=== PATIENT | male | born 1965 | race Caucasian/White ===

== ENCOUNTER 2020-06-05 12:39 | Inpatient (IN) ==
[2020-06-05] MEDS ORDERED: IOPAMIDOL 100 ML BOTTLE IV ONE (12:40)
[2020-06-05] MEDS ORDERED: ONDANSETRON 4 MG/2 ML VIAL IV ONE (13:06)
[2020-06-05] MEDS ORDERED: 0.9 % SODIUM CHLORIDE 1,000 ML IV ONE (13:06)
--- NOTE | 2020-06-05 13:13 | Emergency Department Note ---
Abdominal Pain HPI General Chief Complaint: Constipation Stated Complaint: Constipation for 1 week Time Seen by Provider: 06/05/20 12:52 Source: patient Mode of arrival: wheelchair Limitations: no limitations History of Present Illness HPI Narrative: Narrative: 54-year-old male patient presents the emergency department with chief complaint of constipation x7 days. Patient admits to history of MS and has had frequent episodes of constipation in the past. His last normal bowel movement was approximately 7 days ago. He admits to considerable abdominal bloating and diffuse abdominal tenderness. Since that time he is continued to take his senna. He tried prunes 2 days ago. He is stopped passing flatus approximately 2 days ago. He has now developed nausea and vomiting today. He denies hematemesis. ROS: Denies systemic illness, fever, sweats, chills. Denies runny nose, sinus congestion, or cough. Denies shortness of breath. Denies retrosternal chest pain or palpitations. Denies dysuria, hematuria, urinary frequency, or urinary urgency. Admits to generalized weakness. Related Data Home Medications Medication Instructions Recorded Confirmed pregabalin 100 mg capsule 100 mg PO QDAY 01/28/20 06/05/20 Previous Rx's Medication Instructions Recorded duloxetine 60 mg capsule,delayed 60 mg PO QDAY #90 cap 11/10/19 release hydroxyzine HCl 25 mg tablet 25 mg PO Q4H PRN #90 tab 11/10/19 lubiprostone 24 mcg capsule 24 mcg PO BID #60 cap 11/10/19 baclofen 10 mg tablet 10 mg PO TID #90 tab 01/28/20 bupropion HCl 300 mg 24 hr tablet, 300 mg PO QAM #90 tab 04/30/20 extended release pramipexole 0.75 mg 0.75 mg PO BID #90 tab 04/30/20 tablet,extended release 24 hr pregabalin 150 mg capsule 150 mg PO QHS #30 cap 04/30/20 ramelteon 8 mg tablet 8 mg PO QHS #30 tab 04/30/20 tadalafil 20 mg tablet See Rx Instructions .ROUTE 05/13/20 .COMPLEX #15 tab Allergies Allergy/AdvReac Type Severity Reaction Status Date / Time No Known Drug Allergies Allergy Verified 04/30/20 10:34 Review of Systems ROS ROS Narrative: Narrative: All systems ED: reviewed and negative except as stated. PFSH Narrative Patient History Narrative: Narrative: Medical/Surgical/Family History All Active Problems Partial small bowel obstruction (Acute) Constipation (Acute) Insomnia (Chronic) Muscle spasm (Chronic) Multiple sclerosis, primary progressive (Chronic) Laceration (Acute) Pain, dental (Acute) Dental infection (Acute) Chronic constipation (Acute) Medical History Anxiety (Acute) Constipation (Acute) Depression (Acute) Erectile dysfunction (Acute) Insomnia (Acute) Multiple sclerosis (Acute) Palpitations (Acute) Restless leg syndrome (Acute) Family History (Updated 06/05/20 @ 17:58 by Ramos Loving MD) Unknown No problems noted. Social History Smoking Status: Never smoker Exam Narrative Narrative: Narrative: General Limitations: no limitations General appearance: other (Well-developed, well-nourished, acutely ill-appearing 54-year-old male patient laying supine on the emergency room gurney obviously uncomfortable. He is in no acute respiratory distress.) Head Head: atraumatic and normocephalic Eye Eye: Present normal appearance, PERRL and EOMI; Absent scleral icterus and conjunctival injection ENT ENT: Present normal oropharynx and mucous membranes moist Neck Neck: Present trachea midline; Absent lymphadenopathy and thyromegaly Chest Chest: Present symmetric chest wall rise Respiratory Respiratory: Present normal lung sounds bilaterally; Absent respiratory distress, wheezes, stridor, accessory muscle use and prolonged expiratory phase Cardiovascular Cardiovascular: Present regular rate and normal rhythm; Absent systolic murmur and diastolic murmur Adbominal Abdominal: Present soft, distention, tenderness and hyperactive bowel sounds ([place] greatest in the left upper quadrant.); Absent guarding, rebound, rigidity, organomegaly and mass Expanded Abdominal Abdominal Tenderness: Present diffuse and moderate Extremities Extremities: Present normal inspection, full ROM and normal capillary refill; Absent pedal edema Neurological Neurological: Present alert and oriented X3 Psychiatric Psychiatric: Present normal affect and normal mood Skin Skin: Present warm, dry and normal color Course Course Course Narrative: The differential diagnosis of diffuse abdominal pain in the adult patient is broad and includes the following: Bowel obstruction, perforation of the GI tract, acute/chronic mesenteric ischemia, abdominal aortic aneurysm (AAA), inflammatory bowel disease (ulcerative colitis/Crohn disease), viral gastroenteritis, spontaneous bacterial peritonitis, colorectal cancer, celiac disease, ketoacidosis, adrenal insufficiency, foodborne illness, IBS, constipation, diverticulosis, and lactose intolerance. Patient has known history of MS and as result has had constipation in the past. However he is not developed nausea or vomiting with these episodes until today. His belly exam does show a distended abdomen that is diffusely tender on exam. We are going to order CT scan of his abdomen/pelvis with contrast. I will order some screening laboratory studies as well. We are to treat the patient with Zofran 4 mg IVP. We will also provide him normal saline bolus. Reevaluation(s) Reevaluation #1: Patient began to complain of worsening headache. He was given Tylenol 975 mg p.o. to help with this. Time: 14:45 Reevaluation #2: A review of the patient's diagnostics show the following: CBC WBC 10.0, RBC 6.09, hemoglobin 7.3, hematocrit 52.2, platelets 299. CMP CO2 20, BUN 24, glucose 122, ALT 53, alkaline phosphatase 131, all others normal limits. Contrast-enhanced CT scan of the abdomen/pelvis showing high-grade partial small bowel obstruction of the distal jejunum located in the right upper quadrant due to adhesions or stricture. Radiologist mentions moderate stool is seen within the colon which has not yet been evacuated. There is also mention of 19 mm simple cyst lateral segment left hepatic lobe. After reviewing all the data I reached out to on-call general surgeon (Dr. Loving) and discussed the case with him. At this time the general surgeon did request an NG tube be placed. He would then come down to the emergency department and evaluate the patient for possible admission. Knowing this, I discussed the treatment plan with the patient who verbalized understanding. He mentioned that his headache is slightly improved with the Tylenol. He denies worsening abdominal pain. He denies ongoing nausea. NG tube was placed by nursing staff and placement was verified with radiographs with radiographs. A review of the images show a well- placed NG tube in the stomach. Time: 15:29 Reevaluation #3: Dr. Loving arrived at the patient's bedside and performed his evaluation. At this time general surgeon would like to admit the patient here to our facility for ongoing care. With this in mind patient was notified that he is going to be admitted. All further treatment decisions, modalities, and ultimate patient disposition will be carried out by the general surgeon. Time: 17:31 Vital Signs Vital signs: Vital Signs Temperature 98.5 F 06/05/20 12:42 Pulse Rate 111 H 06/05/20 12:42 Respiratory Rate 18 06/05/20 12:42 Blood Pressure 113/82 06/05/20 12:42 Pulse Oximetry (%) 95 06/05/20 12:42 Temperature 97.9 F 06/05/20 17:59 Pulse Rate 98 H 06/05/20 17:59 Respiratory Rate 18 06/05/20 17:59 Blood Pressure 122/71 06/05/20 17:59 Pulse Oximetry (%) 95 06/05/20 17:59 MDM MDM Narrative Medical decision making narrative: Narrative: Lab Data Result diagrams: 06/05/20 13:18 06/05/20 13:18 Labs: Lab Results 06/05/20 06/05/20 Range/Units 13:18 13:18 WBC 10.0 (4.50-11.00) K/mcL RBC 6.09 H (4.63-6.08) M/mcL Hgb 17.3 (13.7-17.5) g/dL Hct 52.2 H (40.1-51.0) % MCV 85.7 (80.0-100.0) fL MCH 28.4 (26.0-34.0) pg MCHC 33.1 (31.0-36.0) g/dL RDW 13.7 (11.5-14.5) % Plt Count 299 (140-440) K/mcL MPV 10.9 H (7.4-10.4) fL Gran % 86.7 H (38.0-78.0) % Lymph % (Auto) 7.3 L (15.5-49.0) % Clinch % (Auto) 5.4 (1.0-12.0) % Eos % (Auto) 0.2 (0.0-7.0) % Baso % (Auto) 0.4 (0.0-2.0) % Gran # 8.63 H (1.80-8.00) K/mcL Lymph # (Auto) 0.73 L (1.50-4.80) K/mcL Clinch # (Auto) 0.54 (0.10-0.90) K/mcL Eos # (Auto) 0.02 (0.00-0.70) K/mcL Baso # (Auto) 0.04 (0.00-0.30) K/mcL Sodium 137 (133-145) mmol/L Potassium 4.0 (3.3-5.1) mmol/L Chloride 103 (96-108) mmol/L Carbon Dioxide 20 L (22-30) mmol/L Anion Gap 14.0 (8-16) BUN 24 H (6-20) mg/dl Creatinine 1.1 (0.7-1.2) mg/dl POC Creatinine 1.1 (0.7-1.2) mg/dl GFR Calculation 76 Glucose 122 H (70-105) mg/dL Calcium 10.0 (8.6-10.4) mg/dl Total Bilirubin 0.5 (0.0-1.0) mg/dL AST 29 (0-37) U/l ALT 53 H (0-40) U/l Alkaline Phosphatase 131 H (39-117) U/L Total Protein 7.6 (5.9-8.4) gm/dL Albumin 4.6 (3.2-5.2) gm/dL Globulin 3.0 (2.2-3.7) gm/dL Albumin/Globulin Ratio 1.5 (1.0-2.3) Radiology Data Radiology results reviewed: Yes I reviewed the patient's radiology results. Radiology results narrative: Ordering Physician: Ruperto Arceo PA-C Date of Service: 06/05/20 Procedure(s): CT abdomen pelvis w con Accession Number(s): [id number] CLINICAL INFORMATION: Abdominal pain COMPARISON: None. TECHNIQUE: Following enteric contrast, 80 cc of Isovue-370 were injected intravenously, and 60 seconds later, 0.625 mm helical slices were obtained from the mid heart through the subtrochanteric regions. Following reconstruction, 2.5 mm sagittal, coronal and axial reformatted images were processed and reviewed at bone, lung and soft tissue windows. Five minutes later, 0.625 mm helical slices were obtained from the mid heart through the kidneys and viewed at soft tissue windows.The exam was performed using radiation dose optimization techniques including, but not limited to, automated exposure control, adjustment of the mA and/or kV according to patient size and use of iterative reconstruction technique. FINDINGS: Lung bases show no subsegmental atelectasis1 - no effusion. The visualized heart is unremarkable. Abdominal images show 20 mm simple cyst in the lateral segment left hepatic lobe. No other hepatic lesions. Minimal fatty change appreciated. The gallbladder and bile ducts are normal: CBD is 5 mm. Both kidneys, adrenal glands, spleen, pancreas and aorta, including aortic branches the are normal in size, configuration and attenuation without focal lesion. 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 There is no free air, free fluid or adenopathy Pelvic images show prostate, seminal vesicles and urinary bladder are normal. The stomach, duodenum and jejunum are moderately dilated the point of a stricture or adhesion in the right upper quadrant (axial image 73, coronal image 68 and sagittal image 41). The distal small bowel is decompressed. Interestingly, there is moderate amount of stool within the terminal ileum and throughout the colon. Appendix is unremarkable. Bone windows show no abnormality IMPRESSION: 1. High-grade partial small bowel obstruction in the distal jejunum located in the right upper quadrant due to adhesion or stricture. Moderate stool is seen within the colon which has not yet been evacuated. 2. 19 mm simple cyst lateral segment left hepatic lobe Interpreted and Authenticated by: Mayito Mahoney 06/05/20 Plain abdominal radiograph reviewed by myself as well as the general surgeon showing a well-placed NG tube in the gastric bubble. Discharge Plan Patient/Caregiver Discharge Instructions Pt seen by LOSS PREVENTION RESEARCH ENGINEER/PA only: Yes Clinical Impression: Partial small bowel obstruction, Multiple sclerosis, primary progressive Constipation Qualifiers: Constipation type: other constipation type Qualified Code(s): K59.09 - Other constipation Patient Disposition: Xfer As Inpt ([facility]) Condition: Fair Discharge Date/Time: 06/05/20 17:50
[2020-06-05 13:24] LABS: POC Creatinine 1.1 mg/dl (0.7-1.2)
[2020-06-05] MEDS ORDERED: ACETAMINOPHEN 325 MG TABLET PO ONE (13:54)
[2020-06-05 14:02] LABS: Basophils # (Auto) 0.04 K/mcL (0.00-0.30); Basophils % (Auto) 0.4 % (0.0-2.0); Eosinophils # (Auto) 0.02 K/mcL (0.00-0.70); Eosinophils % (Auto) 0.2 % (0.0-7.0); Granulocytes % (Auto) 86.7 % (38.0-78.0); Hematocrit 52.2 % (40.1-51.0); Hemoglobin 17.3 g/dL (13.7-17.5); Lymphocytes # (Auto) 0.73 K/mcL (1.50-4.80); Lymphocytes % (Auto) 7.3 % (15.5-49.0); Mean Cell Volume 85.7 fL (80.0-100.0); Mean Corpuscular HGB Conc 33.1 g/dL (31.0-36.0); Mean Platelet Volume 10.9 fL (7.4-10.4); Monocytes # (Auto) 0.54 K/mcL (0.10-0.90); Monocytes % (Auto) 5.4 % (1.0-12.0); Platelet Count 299 K/mcL (140-440); RBC 6.09 M/mcL (4.63-6.08); Red Cell Distribution Width 13.7 % (11.5-14.5)
[2020-06-05 14:13] LABS: ALT/SGPT 53 U/l (0-40); AST/SGOT 29 U/l (0-37); Albumin 4.6 gm/dL (3.2-5.2); Albumin/Globulin Ratio 1.5 (1.0-2.3); Alkaline Phosphatase 131 U/L (39-117); Bilirubin,Total 0.5 mg/dL (0.0-1.0); Blood Urea Nitrogen 24 mg/dl (6-20); Carbon Dioxide 20 mmol/L (22-30); Chloride 103 mmol/L (96-108); Glomerular Filtration Rate 76; Glucose 122 mg/dL (70-105)
--- NOTE | 2020-06-05 14:59 | Cat Scan Report ---
CLINICAL INFORMATION: Abdominal pain COMPARISON: None. TECHNIQUE: Following enteric contrast, 80 cc of Isovue-370 were injected intravenously, and 60 seconds later, 0.625 mm helical slices were obtained from the mid heart through the subtrochanteric regions. Following reconstruction, 2.5 mm sagittal, coronal and axial reformatted images were processed and reviewed at bone, lung and soft tissue windows. Five minutes later, 0.625 mm helical slices were obtained from the mid heart through the kidneys and viewed at soft tissue windows.The exam was performed using radiation dose optimization techniques including, but not limited to, automated exposure control, adjustment of the mA and/or kV according to patient size and use of iterative reconstruction technique. FINDINGS: Lung bases show no subsegmental atelectasis1 - no effusion. The visualized heart is unremarkable. Abdominal images show 20 mm simple cyst in the lateral segment left hepatic lobe. No other hepatic lesions. Minimal fatty change appreciated. The gallbladder and bile ducts are normal: CBD is 5 mm. Both kidneys, adrenal glands, spleen, pancreas and aorta, including aortic branches the are normal in size, configuration and attenuation without focal lesion. 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 There is no free air, free fluid or adenopathy Pelvic images show prostate, seminal vesicles and urinary bladder are normal. The stomach, duodenum and jejunum are moderately dilated the point of a stricture or adhesion in the right upper quadrant (axial image 73, coronal image 68 and sagittal image 41). The distal small bowel is decompressed. Interestingly, there is moderate amount of stool within the terminal ileum and throughout the colon. Appendix is unremarkable. Bone windows show no abnormality IMPRESSION: 1. High-grade partial small bowel obstruction in the distal jejunum located in the right upper quadrant due to adhesion or stricture. Moderate stool is seen within the colon which has not yet been evacuated. 2. 19 mm simple cyst lateral segment left hepatic lobe Interpreted and Authenticated by: Mayito Mahoney 06/05/20
[2020-06-05] MEDS ORDERED: PRAMIPEXOLE 0.25 MG TABLET PO ONE (16:05)
[2020-06-05] MEDS ORDERED: PROMETHAZINE 25 MG/ML VIAL IV PRN (17:14)
[2020-06-05] MEDS ORDERED: LACTATED RINGERS 1,000 ML IV ONE (17:20)
[2020-06-05] MEDS ORDERED: OLANZapine 10 MG VIAL IM PRN ×2 (17:28→19:45)
--- NOTE | 2020-06-05 17:42 | General Surg History&Physical ---
HPI History of Present Illness Patient information: Note initiated : 06/05/20 at 5:38 pm Service Date, if different from initiated Date: [] Patient: Reinier Espinoza 54 y/o M admitted on for Constipation for 1 week. Chief Complaint: [nausea and vomiting ] History of present illness: 54M without prior abdominal surgery or trauma and 15yr hx of primary progressive MS with long history of related constipation - he now presents with atypical abdominal distention and nausia and vomiting. Pt typically takes 10-12 senna to have 1 soft BM daily there are episodes of no BM several times a year for up to 1 week that resolve. Pt now presents with over 1 week of no BM, no flatus x 3 days, and progressive but generally non painful distention. He reports that the emisis x 1 and nausea has not occured with past episodeds of constipation. He is now feeling ill. ED course: Pt found to have WBC 10, with CT demonstrating large distended colon full of stool as well as transition point in distal jejunum from distended small bowel to decompressed small bowel concerning for SBO. Constitutional Constitutional: Present weakness; Absent fever(s) and increased appetite EENT Eyes: Absent irritation, loss of peripheral vision and loss of vision Nose, mouth and throat: Absent nasal trauma Cardiovascular Cardiovascular: Present lightheadedness; Absent edema Respiratory Respiratory: Absent cough and hemoptysis Gastrointestinal Gastrointestinal: Present constipation, nausea and vomiting; Absent loose stools and melena Genitourinary Genitourinary: difficulty urinating Musculoskeletal Musculoskeletal: Present muscle cramps Integumentary Integumentary: Absent skin ulcer Neurological Neurological: Absent frequent falls Psychiatric Psychiatric: Absent confusion Endocrine Endocrine: Absent excessive sweating PFSH PFSH All Active Problems Partial small bowel obstruction (Acute) Constipation (Acute) Insomnia (Chronic) Muscle spasm (Chronic) Multiple sclerosis, primary progressive (Chronic) Laceration (Acute) Pain, dental (Acute) Dental infection (Acute) Chronic constipation (Acute) Medical History Anxiety (Acute) Constipation (Acute) Depression (Acute) Erectile dysfunction (Acute) Insomnia (Acute) Multiple sclerosis (Acute) Palpitations (Acute) Restless leg syndrome (Acute) Family History (Updated 06/05/20 @ 17:58 by Ramos Loving MD) Unknown No problems noted. Social History household members: spouse lives independently: No marital status: education level: college occupational status: employed occupation: secondary teacher smoking status: Never smoker MEDS/ALLERGIES Home Medications and Allergies Home Medications Medication Instructions Recorded Confirmed Type duloxetine 60 mg capsule,delayed 60 mg PO QDAY #90 cap 11/10/19 06/05/20 Rx release hydroxyzine HCl 25 mg tablet 25 mg PO Q4H PRN #90 tab 11/10/19 06/05/20 Rx lubiprostone 24 mcg capsule 24 mcg PO BID #60 cap 11/10/19 06/05/20 Rx baclofen 10 mg tablet 10 mg PO TID #90 tab 01/28/20 06/05/20 Rx pregabalin 100 mg capsule 100 mg PO QDAY 01/28/20 06/05/20 History bupropion HCl 300 mg 24 hr tablet, 300 mg PO QAM #90 tab 04/30/20 06/05/20 Rx extended release pramipexole 0.75 mg 0.75 mg PO BID #90 tab 04/30/20 06/05/20 Rx tablet,extended release 24 hr pregabalin 150 mg capsule 150 mg PO QHS #30 cap 04/30/20 06/05/20 Rx ramelteon 8 mg tablet 8 mg PO QHS #30 tab 04/30/20 06/05/20 Rx tadalafil 20 mg tablet See Rx Instructions .ROUTE 05/13/20 06/05/20 Rx .COMPLEX #15 tab Allergies Allergy/AdvReac Type Severity Reaction Status Date / Time No Known Drug Allergies Allergy Verified 04/30/20 10:34 Physical Examination Vital Signs Vital signs: Temp Pulse Resp BP Pulse Ox 36.9 C 102 H 18 122/70 98 06/05/20 12:42 06/05/20 15:28 06/05/20 12:42 06/05/20 16:00 06/05/20 15:28 General physical appearance General physical exam: other (NAD, good historian, not in extremis, ) Eyes Eye exam: other (non injected, non icteric) ENT ENT exam: other (MM minimally dry, good dentition) Neck Neck exam: other (no cervical LAD) Cardiovascular Cardiovascular: RRR, no MGR, nml s1 s2 Respiratory Respiratory exam: normal respiratory effort and clear to auscultation Abdomen Abdomen: Present soft (abd has minimal BS, no surgical scars, non tympanitic, moderately distended, very little tenderness, tolerated deep palpation without difficulty, No rebound, neg bedshake, no reflexive guarding) Hernia: Present none Integumentary Integumentary: Present no rash Neurologic Neurologic: Present normal coordination and normal sensation Musculoskeletal Musculoskeletal: Present normal posture Psychiatric Psychiatric: Present oriented to time, oriented to person, oriented to place, speech is normal and memory intact Results Labs Result diagrams: 06/05/20 13:18 06/05/20 13:18 Labs: Abnormal lab results 06/05/20 06/05/20 Range/Units 13:18 13:18 RBC 6.09 H (4.63-6.08) M/mcL Hct 52.2 H (40.1-51.0) % MPV 10.9 H (7.4-10.4) fL Gran % 86.7 H (38.0-78.0) % Lymph % (Auto) 7.3 L (15.5-49.0) % Gran # 8.63 H (1.80-8.00) K/mcL Lymph # (Auto) 0.73 L (1.50-4.80) K/mcL Carbon Dioxide 20 L (22-30) mmol/L BUN 24 H (6-20) mg/dl Glucose 122 H (70-105) mg/dL ALT 53 H (0-40) U/l Alkaline Phosphatase 131 H (39-117) U/L Diabetes panel 06/05/20 Range/Units 13:18 Sodium 137 (133-145) mmol/L Potassium 4.0 (3.3-5.1) mmol/L Chloride 103 (96-108) mmol/L Carbon Dioxide 20 L (22-30) mmol/L BUN 24 H (6-20) mg/dl Creatinine 1.1 (0.7-1.2) mg/dl Glucose 122 H (70-105) mg/dL Calcium 10.0 (8.6-10.4) mg/dl AST 29 (0-37) U/l ALT 53 H (0-40) U/l Alkaline Phosphatase 131 H (39-117) U/L Total Protein 7.6 (5.9-8.4) gm/dL Albumin 4.6 (3.2-5.2) gm/dL Calcium panel 06/05/20 Range/Units 13:18 Calcium 10.0 (8.6-10.4) mg/dl Albumin 4.6 (3.2-5.2) gm/dL Pituitary panel 06/05/20 Range/Units 13:18 Sodium 137 (133-145) mmol/L Potassium 4.0 (3.3-5.1) mmol/L Chloride 103 (96-108) mmol/L Carbon Dioxide 20 L (22-30) mmol/L BUN 24 H (6-20) mg/dl Creatinine 1.1 (0.7-1.2) mg/dl Glucose 122 H (70-105) mg/dL Calcium 10.0 (8.6-10.4) mg/dl Adrenal panel 06/05/20 Range/Units 13:18 Sodium 137 (133-145) mmol/L Potassium 4.0 (3.3-5.1) mmol/L Chloride 103 (96-108) mmol/L Carbon Dioxide 20 L (22-30) mmol/L BUN 24 H (6-20) mg/dl Creatinine 1.1 (0.7-1.2) mg/dl Glucose 122 H (70-105) mg/dL Calcium 10.0 (8.6-10.4) mg/dl Total Bilirubin 0.5 (0.0-1.0) mg/dL AST 29 (0-37) U/l ALT 53 H (0-40) U/l Alkaline Phosphatase 131 H (39-117) U/L Total Protein 7.6 (5.9-8.4) gm/dL Albumin 4.6 (3.2-5.2) gm/dL All other labs normal. A/P Narrative A/P Narrative: 54 yo man presents with obstipation x 3days and now BM x over 7 in the setting of progressive MS. His CT imaging is consistent with a SBO in the jejunum with clear transition point and caliber change as well as a uniformly large colon with a large stool burden. I suspect he has two processes in place. His typical non-obstructive MS related poor colonic function with large amount of unevacuated stool and a small bowel obstruction. Given the absence of abdominal surgery or trauma the SBO is worrysome for a potential maligancy and as a consiquence will need diagnostic surgery. I prefer to do this laproscopically and so will admit for fluid resus and attempt to decompressed to generate additional domain to allow intraabdominal working space. Plan: NGT decompression Gastrographin challange to eval transit through obstruction - if complete will likely need open surgery Home meds crushed down NGT with 1hr clamp serial enemas to decompress colon - if gastrographin transits SBO will start pedro luis alax from above Anti emetics Pt reports significant anxiety and concern with maintaining NGT - olanzapine PRN ordered. QTC in ED is under 460 Time Spent With Patient Time: Total time spent is greater than 50% in coordination of care (as documented) at patient's floor/unit and/or counseling patient: 65min
[2020-06-05] MEDS: LACTATED RINGERS 1,000 ML IV SCH (19:17)
[2020-06-05] MEDS ORDERED: OLANZapine 10 MG VIAL IM ONE ×2 (19:25→20:48)
--- NOTE | 2020-06-05 20:07 | XRay Report ---
CLINICAL INFORMATION: Post NG insertion. COMPARISON: None. FINDINGS: NG tube overlies the gastric body. Most of the abdomen is gasless. High-grade distal jejunal obstruction right upper quadrant technologist. No free air. CT contrast is seen within the urinary bladder which is normal. IMPRESSION: NG tube the gastric body. A known high-grade distal jejunal obstruction. Interpreted and Authenticated by: Mayito Mahoney 06/05/20
[2020-06-05] MEDS: tiZANidine 4 MG TABLET PO PRN (20:29)
[2020-06-05] MEDS ORDERED: DIAZEPAM 10 MG/2 ML SYRINGE IV ONE (20:39)
[2020-06-05] MEDS ORDERED: OLANZapine 10 MG VIAL IM SCH (20:45)
[2020-06-05] MEDS ORDERED: DIAZEPAM 10 MG/2 ML SYRINGE ONE (20:48)
[2020-06-05] MEDS ORDERED: PRAMIPEXOLE 1 MG TABLET PO SCH (21:00)
[2020-06-05] MEDS: HYDROmorphone 0.5 MG/0.5 ML SYRINGE IV PRN (21:17)
[2020-06-05] MEDS: ACETAMINOPHEN 325 MG TABLET PO SCH (21:19)
[2020-06-05] MEDS: DULoxetine 30 MG CAPSULE PO SCH (21:19)
[2020-06-05] MEDS: BACLOFEN 10 MG TABLET PO SCH (21:19)
[2020-06-05] MEDS: FLEETS ADULT ENEMA PR SCH (21:20)
[2020-06-05] MEDS: buPROPion 100 MG TABLET PO SCH (21:20)
[2020-06-05] MEDS: PREGABALIN 150 MG CAPSULE PO SCH (21:20)
[2020-06-05] MEDS: RAMELTEON 8 MG TABLET PO SCH (21:22)
[2020-06-05] MEDS: HEPARIN 5,000 UNIT/ML VIAL SQ SCH (22:23)
[2020-06-05] MEDS: 0.9 % SODIUM CHLORIDE 10 ML SYRINGE IV SCH (22:23)
[2020-06-05] MEDS: BENZOCAINE/MENTHOL 1 LOZENGE PO PRN (22:24)
[2020-06-06] MEDS: HYDROmorphone 0.5 MG/0.5 ML SYRINGE IV PRN ×2 (00:26→03:20)
[2020-06-06] MEDS: LACTATED RINGERS 1,000 ML IV SCH ×4 (02:30→15:38)
[2020-06-06] MEDS: ACETAMINOPHEN 325 MG TABLET PO SCH ×4 (02:30→21:47)
[2020-06-06] MEDS: tiZANidine 4 MG TABLET PO PRN ×2 (03:20→20:47)
[2020-06-06 05:46] LABS: Basophils # (Auto) 0.04 K/mcL (0.00-0.30); Basophils % (Auto) 0.7 % (0.0-2.0); Eosinophils # (Auto) 0.09 K/mcL (0.00-0.70); Eosinophils % (Auto) 1.6 % (0.0-7.0); Granulocytes % (Auto) 64.3 % (38.0-78.0); Hematocrit 44.8 % (40.1-51.0); Hemoglobin 14.2 g/dL (13.7-17.5); Lymphocytes # (Auto) 1.48 K/mcL (1.50-4.80); Lymphocytes % (Auto) 25.5 % (15.5-49.0); Mean Cell Volume 89.2 fL (80.0-100.0); Mean Corpuscular HGB Conc 31.7 g/dL (31.0-36.0); Monocytes # (Auto) 0.46 K/mcL (0.10-0.90); Monocytes % (Auto) 7.9 % (1.0-12.0); Platelet Count 230 K/mcL (140-440); RBC 5.02 M/mcL (4.63-6.08); WBC 5.8 K/mcL (4.50-11.00)
[2020-06-06] MEDS: 0.9 % SODIUM CHLORIDE 10 ML SYRINGE IV SCH ×3 (06:08→21:47)
[2020-06-06] MEDS: HEPARIN 5,000 UNIT/ML VIAL SQ SCH ×3 (06:08→21:47)
[2020-06-06 06:12] LABS: Blood Urea Nitrogen 18 mg/dl (6-20); Carbon Dioxide 25 mmol/L (22-30); Chloride 108 mmol/L (96-108); Glomerular Filtration Rate 76; Glucose 103 mg/dL (70-105)
--- NOTE | 2020-06-06 08:04 | XRay Report ---
CLINICAL INFORMATION: Small bowel obstruction COMPARISON: Abdomen and pelvic CT 06/05/2020 TECHNIQUE: Water-soluble enteric contrast was administered via NG tube and periodic imaging of the abdomen and pelvis was obtained for 12 hours FINDINGS: Stomach, duodenum and jejunum are mildly dilated to the level of the stricture in the right upper quadrant. The small bowel transit time was made: The two hour film does not show opacification of the ileum. A six hour film shows all the contrast transiting through the small bowel and opacifying the colon. IMPRESSION: Mild partial small bowel obstruction of the distal jejunum in the right upper quadrant. The degree of obstruction is much less than predicted from CT Interpreted and Authenticated by: Mayito Mahoney 06/06/20
[2020-06-06] MEDS ORDERED: PEG 3350/NA SULF,BICARB,CL/KCL 4,000 ML ORAL.SOL PT ONE (09:30)
[2020-06-06] MEDS ORDERED: MAGNESIUM SULFATE 8.12 MEQ/2 ML VIAL IV ONE (09:33)
[2020-06-06] MEDS: buPROPion 100 MG TABLET PO SCH ×3 (09:39→20:37)
[2020-06-06] MEDS: FLEETS ADULT ENEMA PR SCH ×2 (09:50→20:36)
[2020-06-06] MEDS ORDERED: MAGNESIUM SULFATE 8.12 MEQ in DEXTROSE 5% IN WATER 50 ML IV ONE (10:00)
[2020-06-06] MEDS: PRAMIPEXOLE 0.75 MG PO PRN ×2 (12:50→20:37)
--- NOTE | 2020-06-06 15:19 | General Surgery Progress Note ---
SUBJECTIVE Subjective Patient information: Note initiated : 06/06/20 at 3:08 pm Service Date, if different from initiated Date: [] Patient: Reinier Espinoza 54 y/o M admitted on 06/05/20 for Constipation for 1 week. Chief Complaint: SBO Events: painful restless leg cramps overnight - responded to diazepam and olanzapine S: feeling well this am, minimal to no abdominal pain, feels much less distended, feels bladder is full with difficulty voiding Now passing flatus, BM x1 this am O: VS reviewed - mild tackycardia resolved MMM, non icteric RRR no MGR LcTAB Abd rotund, much softer than yesterday, still somewhat distended, essentially nontender to deep palpation. periphery warm and well perfused Mood stable, cooperative, euthymic Skin warm and well perfused LE without edema All labs reviewd - WBC nml, Cr nml Gastrographin study shows transit of contrast in to much of small bowel at 2hrs, Well into colon at 6hrs. A/P 54 yo man HD2 with hx of MS admitted for 1st time SBO in virgin abdomen without trauma history. Concern for potental small bowel mass. In addition pt with long hx of constipation with MS and large colon filled with stool. Now appers to have resolution of obstructive symptoms - this allows cleanout of colon to facilitate laperscopic evaluation of small bowel. Plan: OR tomorrow for diagnostic laperoscopy, with possible bowel resection, possible conversion to open Colon clean out today with PEG/Golytely Continue MS meds bladder scan with peralta if PVR over 400 FEN NPO, replete mag, IVF 100 Proph - heparin SQ I discussed risk of surgey including bleeding, infection, injury to abdominal contents pt is ready to proceed - consent signed Ramos Loving MD Constitutional Vitals: Vital Signs Temp Pulse Resp BP Pulse Ox 37.3 C H 89 16 117/85 97 06/06/20 12:00 06/06/20 12:00 06/06/20 12:00 06/06/20 12:00 06/06/20 12:00 Period Temp Pulse Resp BP Sys/Rivas Pulse Ox Last 24 Hr 36.6 C-37.3 C 71-102 16-20 98-129/64-85 95-100 Intake and Output 06/06/20 06/06/20 06/06/20 05:59 13:59 21:59 Intake Total 1902 1200 Output Total 2049 1300 250 Balance -148 -100 -250 Intake & Output: Intake & Output 06/06/20 06/06/20 06/06/20 05:59 13:59 21:59 Intake Total 1902 1200 Output Total 2049 1300 250 Balance -148 -100 -250 Intake: IV 1902 1000 Lactated Ringers 1,000 ml @ 125 1902 1000 mls/hr IV .Q8H [facility] Rx#: [id number] Oral 200 Output: Gastric Drainage 800 Left Nare [place]-Sump 800 Urine Catheter Amount 1250 Void Amount 1300 250 Other: Urine Appearance Clear Clear Clear Straight Clear Urine Color Light Michelle Dark Michelle Dark Michelle Straight Light Michelle Urine Odor Normal Normal Stool Size Large Stool Color Brown Stool Consistency Formed # Bowel Movements 1 A/P Time Spent With Patient Time: Total time spent is greater than 50% in coordination of care (as document ed) at patient's floor/unit and/or counseling patient:
[2020-06-06] MEDS: BACLOFEN 10 MG TABLET PO SCH (20:35)
[2020-06-06] MEDS: DULoxetine 30 MG CAPSULE PO SCH (20:35)
[2020-06-06] MEDS: PREGABALIN 150 MG CAPSULE PO SCH (20:36)
[2020-06-06] MEDS: RAMELTEON 8 MG TABLET PO SCH (20:37)
[2020-06-06] MEDS: PRAMIPEXOLE 0.75 MG PO SCH (20:48)
[2020-06-06] MEDS: BENZOCAINE/MENTHOL 1 LOZENGE PO PRN (22:40)
[2020-06-07] MEDS: BENZOCAINE/MENTHOL 1 LOZENGE PO PRN ×2 (01:45→04:56)
[2020-06-07] MEDS: LACTATED RINGERS 1,000 ML IV SCH ×4 (01:45→21:28)
[2020-06-07] MEDS: ACETAMINOPHEN 325 MG TABLET PO SCH ×4 (04:13→21:27)
[2020-06-07] MEDS: 0.9 % SODIUM CHLORIDE 10 ML SYRINGE IV SCH ×3 (05:26→21:30)
[2020-06-07] MEDS: HEPARIN 5,000 UNIT/ML VIAL SQ SCH ×3 (06:29→21:28)
[2020-06-07] MEDS ORDERED: BENZOCAINE 1 SPRAY BOTTLE TOPICAL ONE (07:33)
[2020-06-07] MEDS ORDERED: BENZOCAINE 1 SPRAY BOTTLE TOPICAL PRN (07:34)
[2020-06-07] MEDS: FLEETS ADULT ENEMA PR SCH ×2 (08:55→21:27)
[2020-06-07] MEDS: buPROPion 100 MG TABLET PO SCH ×3 (08:55→21:27)
[2020-06-07 08:57] LABS: Blood Urea Nitrogen 9 mg/dl (6-20); Calcium 8.5 mg/dl (8.6-10.4); Carbon Dioxide 25 mmol/L (22-30); Chloride 103 mmol/L (96-108); Glomerular Filtration Rate 76; Glucose 102 mg/dL (70-105)
[2020-06-07 09:42] LABS: Appearance,Urine CLEAR; Bilirubin,Urine NEG (NEG); Color,Urine YELLOW; Culture Indicated,Urine NO; Glucose,Urine (UA) NEGATIVE (NEG); Ketones,Urine 5/TR mg/dL (NEG); Leukocyte Esterase,Urine NEG /uL (NEG); Nitrate,Urine NEG (NEG); Protein,Urine NEG (NEG); Specific Gravity,Urine 1.011 (1.000-1.035); Urine Blood NEG mg/dL (<0.03); Urobilinogen,Urine NEG (NEG)
[2020-06-07] MEDS ORDERED: metroNIDAZOLE 500 MG/100 ML BAG IV ONE (09:59)
[2020-06-07] MEDS ORDERED: FLU VACC QS2020-21(6MOS UP)/PF 60 MCG/0.5 ML SYRINGE IM ONE (10:00)
[2020-06-07] MEDS ORDERED: ceFAZolin 2 GM in DEXTROSE 5% IN WATER 50 ML IV SCH (10:00)
[2020-06-07] MEDS ORDERED: cefTRIAXone 2 GM in DEXTROSE 5% IN WATER 50 ML IV ONE (10:05)
--- NOTE | 2020-06-07 10:15 | General Surgery Progress Note ---
SUBJECTIVE Subjective Patient information: Note initiated : 06/07/20 at 10:10 am Service Date, if different from initiated Date: [] Patient: Reinier Espinoza 54 y/o M admitted on 06/05/20 for Constipation for 1 week. Chief Complaint: [partial SBO] S: feeling well this am, significant amount of stool yesterday and overnight with PEG prep. Abd pain resolved. Ready for surgery O: vss NAD, looks well Breathing well on RA RRR Abd soft, minimally distended - much improved from yesterday. nontender periphery warm and well perfused All labs reviewed A/P 54 yo man HD3 admitted for SBO in virgin abdomen in addition to MS related constipation. Now with resolution of SBR and very enlarged colon from stool burden. Now with adiquate domain to work laproscopically Plan OR today for diagnostic laparoscopy and possible bowel resection to identify site of recent obstruction Please see yesterdays not for discussion of risks and benefits Ramos Loving MD - Surgery Constitutional Vitals: Vital Signs Temp Pulse Resp BP Pulse Ox 37.0 C 74 18 135/87 96 06/07/20 08:00 06/07/20 08:00 06/07/20 08:00 06/07/20 08:00 06/07/20 08:00 Period Temp Pulse Resp BP Sys/Rivas Pulse Ox Last 24 Hr 36.8 C-37.3 C 65-89 16-18 116-135/65-87 96-98 Intake and Output 06/06/20 06/07/20 06/07/20 21:59 05:59 13:59 Intake Total 715 Output Total 1050 3150 450 Balance -1050 -3150 265 Weight 106.866 kg Intake & Output: Intake & Output 06/06/20 06/07/20 06/07/20 21:59 05:59 13:59 Intake Total 715 Output Total 1050 3150 450 Balance -1050 -3150 265 Weight 106.866 kg Intake: IV 715 Lactated Ringers 1,000 ml @ 100 715 mls/hr IV .Q10H [facility] Rx#: [id number] Output: Gastric Drainage 300 0 Left Nare Churchill-Sump 300 0 Void Amount 750 2500 450 Stool 650 Other: Urine Appearance Clear Clear Clear Urine Color Light Michelle Bright Yellow Straw Urine Odor Normal Normal Normal Stool Size Moderate Moderate Stool Color Brown Brown Stool Consistency Liquid Liquid Watery Watery # Bowel Movements 1 1 # of times incontinent of 1 1 Bowels A/P Time Spent With Patient Time: Total time spent is greater than 50% in coordination of care (as documented) at patient's floor/unit and/or counseling patient:
[2020-06-07] MEDS ORDERED: ROCURONIUM 10 MG/ML ML IV ONE (10:29)
[2020-06-07] MEDS ORDERED: PHENYLEPHRINE 10 MG/ML VIAL ONE (10:29)
[2020-06-07] MEDS ORDERED: DEXAMETHASONE 10 MG/ML VIAL ONE (10:29)
[2020-06-07] MEDS ORDERED: LIDOCAINE HCL/PF 100 MG/5 ML SYRINGE IV ONE (10:29)
[2020-06-07] MEDS ORDERED: SUGAMMADEX SODIUM 200 MG/2 ML VIAL IV ONE (10:29)
[2020-06-07] MEDS ORDERED: fentaNYL 100 MCG/2 ML VIAL IV ONE (10:29)
[2020-06-07] MEDS ORDERED: KETAMINE 100 MG/ML ML ONE (10:29)
[2020-06-07] MEDS ORDERED: GLYCOPYRROLATE 0.2 MG/ML VIAL IV ONE (10:29)
[2020-06-07] MEDS ORDERED: MIDAZOLAM 2 MG/2 ML VIAL ONE (10:29)
[2020-06-07] MEDS ORDERED: PROPOFOL 200 MG/20 ML VIAL IV ONE (10:29)
[2020-06-07] MEDS ORDERED: ONDANSETRON 4 MG/2 ML VIAL ONE (10:29)
[2020-06-07] MEDS ORDERED: BUPIVACAINE W/EPI 0.25% 50 ML VIAL IJ ONE (11:03)
[2020-06-07] MEDS ORDERED: ACETAMINOPHEN 1,000 MG/100 ML BOTTLE IV ONE (12:09)
[2020-06-07] MEDS ORDERED: DIAZEPAM 10 MG/2 ML SYRINGE IV PRN (12:09)
[2020-06-07] MEDS ORDERED: METHOCARBAMOL 1,000 MG/10 ML VIAL IV PRN (12:09)
[2020-06-07] MEDS ORDERED: IPRATROPIUM/ALBUTEROL 3 ML AMPUL.NEB NEB PRN (12:09)
[2020-06-07] MEDS ORDERED: fentaNYL 100 MCG/2 ML VIAL IV PRN (12:09)
[2020-06-07] MEDS ORDERED: MEPERIDINE 25 MG/ML SYRINGE IV PRN (12:09)
[2020-06-07] MEDS ORDERED: BENZOCAINE/MENTHOL 1 LOZENGE PO PRN (12:09)
[2020-06-07] MEDS ORDERED: KETOROLAC 30 MG/ML VIAL IV PRN (12:09)
[2020-06-07] MEDS ORDERED: ONDANSETRON 4 MG/2 ML VIAL IV PRN (12:09)
[2020-06-07] MEDS ORDERED: LACTATED RINGERS 1,000 ML IV SCH (12:15)
--- NOTE | 2020-06-07 13:16 | Brief Operative Note ---
Brief Operative Note Date of procedure: 06/07/20 Pre-op diagnosis: SBO Post-op diagnosis: same Procedure: diagnostic laperoscopy, diagnostic laperotomy Grafts/Implants: No Anesthesia: GETA Findings: some residial proximal bowel edema post obstuction, no focal leasion, stricture, tortion, volvulous or pathologic thickening of bowel. signficant adhesive disease over GB with adherent omentum mild adhesions in LLQ. Complications: none Surgeon: Ramos Loivng Estimated blood loss (cc): 30 Condition: stable Disposition: PACU
--- NOTE | 2020-06-07 14:02 | Operative Note ---
DATE OF OPERATION: 06/07/2020 PREOPERATIVE DIAGNOSIS: Recent small-bowel obstruction. POSTOPERATIVE DIAGNOSIS: Recent small-bowel obstruction. No evidence of intra-abdominal malignancy. PROCEDURE: 1. Diagnostic laparoscopy. 2. Small exploratory laparotomy. SURGEON: Ramos Loving M.D. ESTIMATED BLOOD LOSS: Approximately 30 mL. SPECIMENS: Small bowel nodule. IMPLANTS: None. COMPLICATIONS: None. INDICATIONS: This is a 54-year-old man with a history of primary-progressive MS who presented to the emergency department 3 days prior with his first episode ever of small-bowel obstruction. Per CT imaging, he had a clear transition point within the mid-jejunum. Of note, he had no prior abdominal trauma or abdominal surgery. He was admitted. A Gastrografin challenge showed relatively brisk transit through the area of potential obstruction and by 6 hours was into the majority of the colon. Of note, the patient has a significant history of chronic constipation with his MS and on CT imaging had a very large stool burden within his colon. Due to the small-bowel obstruction with the small bowel distention, as well as the large colonic distention from his stool burden, which was nonobstructive, I felt that there was minimal domain to potentially operate without a large laparotomy incision. As a consequence, the patient was allowed to decompress with a nasogastric tube again with Gastrografin challenge. It was demonstrated that his obstruction had opened, and he was given a GoLYTELY colon prep to clear his colon. By this point, the patient's abdomen was soft with plenty of domain to work, and his abdominal pain had fully resolved. He was taken to the operating room to evaluate for the cause of his obstruction and to definitively evaluate for any abdominal malignancy. FINDINGS: There was some residual bowel edema post-obstruction in the proximal jejunum. There were no focal lesions whatsoever identified. There was no stricture, no torsion, no volvulus, and there was no pathologic thickening of the bowel. There was significant adhesive disease over the gallbladder with adherent omentum suggestive of a prior episode of cholecystitis. There were mild adhesions in the left lower quadrant. DESCRIPTION OF PROCEDURE: The patient was brought to the operating room. He was prepped and draped in the usual sterile fashion. He was intubated without incident. A timeout was completed. Entry into the abdomen was performed using Nannette cutdown technique. A vertically-oriented incision was placed just superior to the umbilicus. The subcutaneous tissue was bluntly dissected through until the linea alba was identified. A Abraham clamp was placed on this and elevated. Two retention sutures were placed on either side of it. The clamp was released and the linea alba was split with a scalpel. Entry into the abdomen was facilitated by a blunt clamp and an S-retractor confirmed intra-abdominal placement. This was then used to guide placement of the Nannette port. The abdomen was then insufflated without incident. A total of three 5 mm ports were then placed, one in the suprapubic region and the other two at the midclavicular line on the right and left abdomen, just superior to the umbilicus. Upon entering the abdomen, the serosal surfaces were inspected. There were no peritoneal implants or studding identified whatsoever. The liver appeared to be healthy. There was, however, some fairly densely-adherent greater omentum over the gallbladder. We then proceeded identifying the cecum and right colon and from that emanating the terminal ileum which was identified via the proximity to the appendix, as well as Glen's veil. Using laparoscopic technique, the bowel was then run from the terminal ileum, moving proximally, inspecting both the front and back wall of the intestine. We progressed running the entire bowel until the ligament of Treitz was encountered. In the more proximal small bowel, there was some thickening of the bowel which appeared to be consistent with some post-obstruction edema, but there was certainly no area of lesion, stricture, torsion, or volvulus identified. To be completely sure of the absence of any intraluminal lesion, a small laparotomy incision was placed just superior to the umbilicus. This measured approximately 7 cm in length. Using Bovie cautery, the skin and subcutaneous tissue and linea alba were split. Prior to this, a bowel clamp was placed on the very proximal jejunum in the vicinity of the ligament of Treitz. This was brought up out through the wound. I was then able to grasp the small bowel in this location with a [place]. Care was taken to understand the bowel's orientation. We then proceeded to run the entire bowel from very close to the ligament of Treitz distally, hand over hand. This was done carefully palpating and inspecting all surfaces of the small bowel. Once we had reached in the vicinity of the terminal ileum, which I had previously marked with a purple pen internally, I then again a third time ran the small bowel from near the terminal ileum back to the ligament of Treitz. Again, there were no pathologic findings. There was a small, perhaps cystic nodule that was identified on the side of the bowel which was certainly not obstructing. This measured approximately 2 mm in size. This was excised and sent to Pathology for evaluation. To be don, though, I do not suspect malignancy. Of note, prior to converting to an open procedure the remainder of the large bowel was inspected, and this was without significant abnormality. There was some mild adhesive disease in the left lower quadrant. At this point, having run the small bowel a total of three times and identifying no pathologic processes, I felt that due diligence had been done. I felt that the amount of information that could be gained from a larger laparotomy incision would have been very negligible. As a consequence, the decision was made to close the abdomen. At this point, ports were all withdrawn. I was careful to inspect the sites for any abdominal wall bleeding which was not the case. The laparotomy incision was then closed using a running #1 PDS suture in a continuous fashion. The subcutaneous tissue was then copiously irrigated and skin was closed using cameron. Dressings were applied. The patient was then awakened, extubated, and brought to PACU without incident. CHERYL:deirdre Job ID: [id number] Doc ID: [id number] Ramos Loving MD
[2020-06-07] MEDS: tiZANidine 4 MG TABLET PO PRN (14:31)
[2020-06-07] MEDS: PRAMIPEXOLE 0.75 MG PO PRN (14:33)
[2020-06-07] MEDS: PRAMIPEXOLE 0.75 MG PO SCH ×2 (14:41→21:23)
[2020-06-07] MEDS: HYDROmorphone 0.5 MG/0.5 ML SYRINGE IV PRN (17:49)
[2020-06-07] MEDS: DULoxetine 30 MG CAPSULE PO SCH (21:23)
[2020-06-07] MEDS: PREGABALIN 150 MG CAPSULE PO SCH (21:23)
[2020-06-07] MEDS: BACLOFEN 10 MG TABLET PO SCH (21:23)
[2020-06-07] MEDS: RAMELTEON 8 MG TABLET PO SCH (21:24)
[2020-06-08] MEDS: PRAMIPEXOLE 0.75 MG PO PRN (00:02)
[2020-06-08] MEDS: tiZANidine 4 MG TABLET PO PRN ×2 (00:02→20:58)
[2020-06-08] MEDS: HYDROmorphone 0.5 MG/0.5 ML SYRINGE IV PRN ×2 (00:03→08:30)
[2020-06-08] MEDS: ACETAMINOPHEN 325 MG TABLET PO SCH ×4 (02:59→20:45)
[2020-06-08] MEDS: 0.9 % SODIUM CHLORIDE 10 ML SYRINGE IV SCH ×3 (06:36→20:50)
[2020-06-08] MEDS: LACTATED RINGERS 1,000 ML IV SCH ×2 (06:36→16:38)
[2020-06-08] MEDS: HEPARIN 5,000 UNIT/ML VIAL SQ SCH ×3 (06:39→20:59)
[2020-06-08] MEDS: FLEETS ADULT ENEMA PR SCH (08:16)
[2020-06-08] MEDS: PRAMIPEXOLE 0.75 MG PO SCH ×2 (08:29→20:46)
[2020-06-08] MEDS: buPROPion 100 MG TABLET PO SCH ×3 (08:30→20:46)
[2020-06-08] MEDS ORDERED: POLYETHYLENE GLYCOL 3350 17 GM PACKET PO SCH (09:00)
[2020-06-08 09:50] LABS: Basophils # (Auto) 0.03 K/mcL (0.00-0.30); Basophils % (Auto) 0.3 % (0.0-2.0); Eosinophils # (Auto) 0.02 K/mcL (0.00-0.70); Eosinophils % (Auto) 0.2 % (0.0-7.0); Granulocytes % (Auto) 81.7 % (38.0-78.0); Hematocrit 42.1 % (40.1-51.0); Hemoglobin 13.4 g/dL (13.7-17.5); Lymphocytes # (Auto) 1.26 K/mcL (1.50-4.80); Mean Corpuscular HGB Conc 31.8 g/dL (31.0-36.0); Mean Platelet Volume 10.7 fL (7.4-10.4); Monocytes # (Auto) 0.78 K/mcL (0.10-0.90); Monocytes % (Auto) 6.8 % (1.0-12.0); Platelet Count 234 K/mcL (140-440); RBC 4.73 M/mcL (4.63-6.08); Red Cell Distribution Width 13.7 % (11.5-14.5); WBC 11.5 K/mcL (4.50-11.00)
[2020-06-08 10:08] LABS: Blood Urea Nitrogen 13 mg/dl (6-20); Calcium 8.5 mg/dl (8.6-10.4); Carbon Dioxide 23 mmol/L (22-30); Chloride 104 mmol/L (96-108); Glomerular Filtration Rate 76; Glucose 139 mg/dL (70-105)
[2020-06-08] MEDS: SENNOSIDES/DOCUSATE SODIUM 1 TAB TABLET PO SCH ×2 (11:44→20:44)
[2020-06-08] MEDS: TAMSULOSIN 0.4 MG CAPSULE PO SCH ×2 (11:44→20:44)
[2020-06-08] MEDS ORDERED: POTASSIUM CHLORIDE 20 MEQ TABLET PO ONE (12:43)
--- NOTE | 2020-06-08 12:51 | General Surgery Progress Note ---
SUBJECTIVE Subjective Patient information: Note initiated : 06/08/20 at 12:44 pm Service Date, if different from initiated Date: [] Patient: Reinier Espinoza 54 y/o M admitted on 06/05/20 for Constipation for 1 week. Chief Complaint: bowel obstruction S: feeling well, tolerating full liquid diet without nausea or difficulty, no flatus or BM since surgery O: VSS looks well LcTAB RRR no mger Abd is soft minimally tender, moderately distended, dressings dry periphery warm Peralta in place with clear yellow urine All labs reviwed K 3.7 A/P 54 yo man POD1 s/p diagnostic laperoscopy and mini-laperotomy to eval for mid jejunal SBO in virgin abdomen in addition to MS related constipation. Intra op no maligant or adhesive or other cause identified. Had very large colon on initial imaging with stool burdern - was much improved intra op after bowel prep with PEG On going urinary retention. Plan: Continue fulls - will advance once flatus PO oxy for pain with APAP Bowel regement with miralax 34g BID+home senna Urinary retention - discussed with urology - suspect adynamic bladder with MS - plan to keep peralta for 2 weeks with f/u in clinic for TOV, starting tamsulosin PT for gait training FEN Fulls, Replete K, IVF Proph - heparin SQ Ramos Loving MD - Surgery Constitutional Vitals: Vital Signs Temp Pulse Resp BP Pulse Ox 36.6 C 84 18 81/56 97 06/08/20 07:52 06/08/20 09:00 06/08/20 07:52 06/08/20 09:00 06/08/20 09:00 Period Temp Pulse Resp BP Sys/Rivas Pulse Ox Last 24 Hr 36.4 C-37.3 C 78-102 16-21 81-148/55-89 91-97 Intake and Output 06/07/20 06/08/20 06/08/20 21:59 05:59 13:59 Intake Total 1333 350 913 Output Total 1450 275 Balance -117 75 913 Weight 106.821 kg Intake & Output: Intake & Output 06/07/20 06/08/20 06/08/20 21:59 05:59 13:59 Intake Total 1333 350 913 Output Total 1450 275 Balance -117 75 913 Weight 106.821 kg Intake: IV 853 913 Lactated Ringers 1,000 ml @ 100 853 913 mls/hr IV .Q10H [facility] Rx#: [id number] Oral 480 350 Output: Urine Catheter Amount 1450 275 Other: Meal Dinner Percent of Meal Consumed 100% Feeding Ability Independent Urine Appearance Clear Uretheral (Peralta) Clear Urine Color Pale Uretheral ([place]) Straw A/P Time Spent With Patient Time: Total time spent is greater than 50% in coordination of care (as documented) at patient's floor/unit and/or counseling patient:
[2020-06-08] MEDS: POLYETHYLENE GLYCOL 3350 17 GM PACKET PO SCH (20:43)
[2020-06-08] MEDS: BACLOFEN 10 MG TABLET PO SCH (20:44)
[2020-06-08] MEDS: DULoxetine 30 MG CAPSULE PO SCH (20:44)
[2020-06-08] MEDS: PREGABALIN 150 MG CAPSULE PO SCH (20:44)
[2020-06-08] MEDS: RAMELTEON 8 MG TABLET PO SCH (20:46)
[2020-06-08] MEDS: oxyCODONE HCL 5 MG TABLET PO PRN (20:58)
[2020-06-09] MEDS: ONDANSETRON 4 MG/2 ML VIAL IV PRN ×2 (01:55→07:33)
[2020-06-09] MEDS: LACTATED RINGERS 1,000 ML IV SCH ×2 (01:56→15:11)
[2020-06-09] MEDS: ACETAMINOPHEN 325 MG TABLET PO SCH ×4 (02:15→20:58)
[2020-06-09] MEDS: tiZANidine 4 MG TABLET PO PRN ×2 (02:16→21:00)
[2020-06-09] MEDS: 0.9 % SODIUM CHLORIDE 10 ML SYRINGE IV SCH ×3 (07:33→21:04)
[2020-06-09] MEDS: HEPARIN 5,000 UNIT/ML VIAL SQ SCH (07:33)
[2020-06-09 09:42] LABS: Blood Urea Nitrogen 9 mg/dl (6-20); Calcium 9.3 mg/dl (8.6-10.4); Carbon Dioxide 23 mmol/L (22-30); Chloride 104 mmol/L (96-108); Glomerular Filtration Rate 97; Glucose 138 mg/dL (70-105)
[2020-06-09] MEDS: TAMSULOSIN 0.4 MG CAPSULE PO SCH ×2 (10:05→20:59)
[2020-06-09] MEDS: POLYETHYLENE GLYCOL 3350 17 GM PACKET PO SCH ×2 (10:05→20:57)
[2020-06-09] MEDS: PRAMIPEXOLE 0.75 MG PO SCH ×2 (10:05→21:00)
[2020-06-09] MEDS: buPROPion 100 MG TABLET PO SCH ×3 (10:05→21:04)
[2020-06-09] MEDS: SENNOSIDES/DOCUSATE SODIUM 1 TAB TABLET PO SCH ×2 (10:05→20:58)
[2020-06-09] MEDS: ENOXAPARIN 40 MG/0.4 ML SYRINGE SQ SCH (10:07)
[2020-06-09] MEDS ORDERED: POTASSIUM CHLORIDE 20 MEQ TABLET PO ONE (10:08)
[2020-06-09] MEDS ORDERED: MAGNESIUM SULFATE 8.12 MEQ/2 ML VIAL IV ONE (10:09)
[2020-06-09] MEDS ORDERED: MAGNESIUM SULFATE 2 GM/50 ML BAG IV ONE (10:15)
--- NOTE | 2020-06-09 10:16 | General Surgery Progress Note ---
SUBJECTIVE Subjective Patient information: Note initiated : 06/09/20 at 10:11 am Service Date, if different from initiated Date: [] Patient: Reinier Espinoza 54 y/o M admitted on 06/05/20 for Constipation for 1 week. Chief Complaint: [pseudoobstruction) S: drank entire frosty milk shake yesterday evening with abdominal distention nausia and burping afterwards, feeling somewhat better this am. Endorses progressive distention, - bM - flatus since surgery. Feeling well but discouraged O: VSS Clear mentation Breathing comfortably on RA RRR Abd soft, distended, tympanitic, minimally tender, wounds CDI A/P 54 yo man POD2 s/p diagnostic laperoscopy and mini-laperotomy to eval for mid jejunal SBO in virgin abdomen in addition to MS related constipation. Intra op no maligant or adhesive or other cause identified. Had very large colon on initial imaging with stool burdern - was much improved intra op after bowel prep with PEG On going urinary retention. now with post op ileus Plan: Sips and chips, if significant nausea and discomfort ->NGT Ambilation, chewing gum Bowel regiment Urinary retention - discussed with urology - suspect adynamic bladder with MS - plan to keep peralta for 2 weeks with f/u in clinic for TOV, starting tamsulosin PT for gait training FEN sips, Replete K and mag, IVF Proph - Enox Ramos Loving MD - Surgery Constitutional Vitals: Vital Signs Temp Pulse Resp BP Pulse Ox 36.9 C 112 H 26 H 120/85 91 06/09/20 07:12 06/09/20 07:12 06/09/20 07:12 06/09/20 07:12 06/09/20 07:15 Period Temp Pulse Resp BP Sys/Rivas Pulse Ox Last 24 Hr 36.4 C-36.9 C 67-112 16-26 82-130/60-85 91-97 Intake and Output 06/08/20 06/09/20 06/09/20 21:59 05:59 13:59 Intake Total 1360 1380 735 Output Total 2125 1475 Balance -765 -95 735 Weight 107.728 kg Intake & Output: Intake & Output 06/08/20 06/09/20 06/09/20 21:59 05:59 13:59 Intake Total 1360 1380 735 Output Total 5 1475 Balance -765 -95 735 Weight 107.728 kg Intake: IV 1000 930 735 Lactated Ringers 1,000 ml @ 100 1000 930 735 mls/hr IV .Q10H [facility] Rx#: [id number] Oral 360 450 Output: Urine Catheter Amount 2124 1475 Uretheral (P[place]) 825 Other: Meal Dinner Percent of Meal Consumed 100% Feeding Ability Independent Urine Appearance Clear Clear Uretheral ([place]) Clear Clear Urine Color Bright Yellow Pale Uretheral ([place]) Straw Pale Urine Odor Uretheral ([place]) Normal A/P Time Spent With Patient Time: Total time spent is greater than 50% in coordination of care (as documented) at patient's floor/unit and/or counseling patient:
[2020-06-09] MEDS: oxyCODONE HCL 5 MG TABLET PO PRN (14:42)
--- NOTE | 2020-06-09 15:50 | Surgical Pathology Report ---
HISTOLOGY SPECIMEN MICROSCOPIC DIAGNOSIS SMALL BOWEL, NODULE, BIOPSY: -- BENIGN SMOOTH MUSCLE ASSOCIATED WITH RARE GANGLION CELLS AND NERVE, CONSISTENT WITH SAMPLING OF INTESTINAL MUSCULARIS PROPRIA; SEE COMMENT. -- NO MALIGNANCY IDENTIFIED. (DMT:adj) COMMENT: Multiple step sections are examined and the tissue fragment consists entirely of smooth muscle with interspersed ganglion cells and a small nerve. These findings are compatible with sampling of the muscular wall and myenteric plexus of the small intestine. No associated atypia or malignancy are identified. PROCEDURAL IMPRESSION Small bowel obstruction. GROSS DESCRIPTION Received in formalin labeled small intestinal nodule, is a 0.1 cm pale pink-august tissue fragment. Totally submitted - one cassette. (STS:sln) Electronically Signed by: Jamel Lamas M.D.
[2020-06-09] MEDS: BACLOFEN 10 MG TABLET PO SCH (20:59)
[2020-06-09] MEDS: RAMELTEON 8 MG TABLET PO SCH (20:59)
[2020-06-09] MEDS: DULoxetine 30 MG CAPSULE PO SCH (20:59)
[2020-06-09] MEDS: PREGABALIN 150 MG CAPSULE PO SCH (20:59)
[2020-06-10] MEDS: ACETAMINOPHEN 325 MG TABLET PO SCH ×3 (03:40→16:44)
[2020-06-10] MEDS: 0.9 % SODIUM CHLORIDE 10 ML SYRINGE IV SCH ×2 (06:45→12:54)
[2020-06-10 07:15] LABS: Blood Urea Nitrogen 11 mg/dl (6-20); Calcium 8.9 mg/dl (8.6-10.4); Carbon Dioxide 23 mmol/L (22-30); Chloride 105 mmol/L (96-108); Glomerular Filtration Rate 76; Glucose 105 mg/dL (70-105)
--- NOTE | 2020-06-10 09:14 | General Surgery Progress Note ---
SUBJECTIVE Subjective Patient information: Note initiated : 06/10/20 at 9:10 am Service Date, if different from initiated Date: [] Patient: Reinier Espinoza 54 y/o M admitted on 06/05/20 for Constipation for 1 week. Chief Complaint: post op S: improved over yesterday, now with BM x1 and ongoing flatus, feels less distended, up ambulating frequently. Rarely in bed during day. No longer burping O: VSS afebrile Looks well, More vigor than yesterday breathing easily on RA RRR no mgr Abd soft, signficantly less distended. Wounds CDI, minimally tender A/P 54 yo man POD3 s/p diagnostic laperoscopy and mini-laperotomy to eval for mid jejunal SBO in virgin abdomen in addition to MS related constipation. Intra op no maligant or adhesive or other cause identified. Had very large colon on initial imaging with stool burdern - was much improved intra op after bowel prep with PEG On going urinary retention with peralta Now with resolving post op ileus Plan: Clear liquid diet today Continue Ambilation, chewing gum Cont Bowel regiment Urinary retention - discussed with urology - suspect adynamic bladder with MS - plan to keep peralta for 2 weeks with f/u in clinic for TOV, starting tamsulosin PT for gait training MATHEW Burger , Elect [place], LR at 50 Proph - Enox Ramos Loving MD - Surgery Constitutional Vitals: Vital Signs Temp Pulse Resp BP Pulse Ox 36.4 C 110 H 16 105/70 97 06/10/20 07:01 06/10/20 07:01 06/10/20 07:01 06/10/20 07:01 06/10/20 07:01 Period Temp Pulse Resp BP Sys/Rivas Pulse Ox Last 24 Hr 36.3 C-37.1 C 74-112 16-22 82-127/50-82 90-97 Intake and Output 06/09/20 06/10/20 06/10/20 21:59 05:59 13:59 Intake Total 412 250 Output Total 300 150 Balance 112 100 Weight 105.233 kg Intake & Output: Intake & Output 06/09/20 06/10/20 06/10/20 21:59 05:59 13:59 Intake Total 412 250 Output Total 300 150 Balance 112 100 Weight 105.233 kg Intake: IV 212 Lactated Ringers 1,000 ml @ 50 212 mls/hr IV .Q20H [facility] Rx#: [id number] Oral 200 250 Output: Urine Catheter Amount 150 Void Amount 300 Other: Urine Appearance Uretheral ([place]) Clear Urine Color Dark Yellow Uretheral ([place]) Straw Urine Odor Strong Stool Color Brown Stool Consistency Loose # Bowel Movements 1 A/P Time Spent With Patient Time: Total time spent is greater than 50% in coordination of care (as documented) at patient's floor/unit and/or counseling patient:
[2020-06-10] MEDS: TAMSULOSIN 0.4 MG CAPSULE PO SCH (10:09)
[2020-06-10] MEDS: ENOXAPARIN 40 MG/0.4 ML SYRINGE SQ SCH (10:09)
[2020-06-10] MEDS: SENNOSIDES/DOCUSATE SODIUM 1 TAB TABLET PO SCH (10:09)
[2020-06-10] MEDS: POLYETHYLENE GLYCOL 3350 17 GM PACKET PO SCH (10:09)
[2020-06-10] MEDS: buPROPion 100 MG TABLET PO SCH ×3 (10:10→16:46)
[2020-06-10] MEDS: PRAMIPEXOLE 0.75 MG PO PRN (10:10)
[2020-06-10] MEDS: LACTATED RINGERS 1,000 ML IV SCH ×2 (10:42→12:50)
[2020-06-10] MEDS: PRAMIPEXOLE 0.75 MG PO SCH (10:43)
[2020-06-10] MEDS ORDERED: FLU VACC QS2020-21(6MOS UP)/PF 60 MCG/0.5 ML SYRINGE IM ONE (13:15)
--- NOTE | 2020-06-10 18:33 | Discharge Summary ---
Discharge Provider Provider Patient information: Note initiated : 06/10/20 at 6:17 pm Service Date, if different from initiated Date: [] Patient: Reinier Espinoza 54 y/o M admitted on 06/05/20 for Constipation for 1 week. Chief Complaint: [bowel obstruction] Date of admission: 06/05/20 17:50 Discharge date: 06/10/20 Primary care physician: Mercedes Grewal Consults: 06/05/20 16:07 Consult to Physician [CONS] Stat Comment: Consulting Provider: Ramos Loving Reason For Exam: Physician to Consult COURSE Hospital Course Hospital course: 54 yo man with primary-progressive MS who presented to the emergency department with his first episode ever of small-bowel obstruction. On A/P CT he had a clear transition point within the mid-jejunum. In the setting of no prior abdominal trauma or abdominal surgery. A Gastrografin challenge showed relatively brisk transit through the area of potential obstruction and by 6 hours was into the majority of the colon. With MS patient has a significant history of chronic constipation and on CT imaging had a very large stool burden within his colon. He was decompressed with NGT and then PEG bowel prep to gain domain for laproscopic exploration and was taken to the OR. He was taken to the operating room to evaluate for the cause of his obstruction and to definitively evaluate for any abdominal malignancy - given the abscence of prior surgery. In the OR pt bowel was run 3x. once laproscopically and twice via a very small upper midline laperotomy to be able to palpate the bowel. No volvulous, structure, mass or adhesions were encountered. Post op Pt developed an ileus but by POD3 had opened up with flatus and stool, he was discharged home. I reviewed relevant literature - while there are multiple cases of functional large bowel pseudoobstructions reported in association with MS no focall small bowel functional obstructions have been reported. Looking at the specific anatomay on CT it is possible the large constipated colon - pinched a segment of small bowel - but this is not fully born out by the images. Pt has had likely longstanding urinary retention with worsening on admission. Peralta was placed with evac of 1.5L of urine. left in place for 2 weeks with urology follow up. Tamsulosin started. Of not pt discharge a day earlier than I felt optimal - he was however insistent Discharge diagnosis: small bowel obstruciton Secondary discharge diagnosis: multiple sclerosis urinary retention Reason for admission: Small bowel obstruction Procedures: Diagnostic laperoscopy Diagnostic laperotomy Complications: NOne Time Spent with Patient Time attestation: Total time spent providing and/or coordinating discharge services: Time spent: Greater than 30 minutes Physical Examination Vital Signs Vital signs: Temp Pulse Resp BP Pulse Ox 37.1 C 76 16 116/73 99 06/10/20 16:00 06/10/20 16:00 06/10/20 16:00 06/10/20 16:00 06/10/20 16:00 General physical appearance General physical exam: other (On discharge speaking easily, abd soft minimally tender non disteneded, wound CDI, peralta in place with clear yellow urine) Discharge Plan Patient/Caregiver Discharge Instructions Activity: resume usual activities as tolerated Instructions: Bowel Obstruction (DC) Activity Restrictions/Additional Instructions: 1) Diet: full liquids - ie soups, yogurt, pudding, cream of wheat etc. Until 06/13. Then ok to start with small amounts of regular food and increase slowly 2) OK to shower, no soaking in water ie hot tub/bath tube for 2 weeks post surgery 3) No lifting over 15lbs for 6 weeks to prevent hernias 4) Continue your miralax - increase or decrease the dose so that you are having 1-2 soft like soft serve ice cream bowel movements every day 5) As you get your bowel function working well - work or reducing your senna dosing. Large correction senna doses can over time hurt the colon. Prescriptions: New acetaminophen [Tylenol] 325 mg Tablet 650 mg PO Q6H Qty: 30 RF: 0 oxycodone 5 mg Tablet 5 mg PO Q4HP PRN (Reason: Per Pain Protocol) Qty: 5 RF: 0 polyethylene glycol 3350 [Miralax] 17 gram/dose powder 34 g PO BID Qty: 1 RF: 0 tamsulosin 0.4 mg Capsule 0.4 mg PO BID Qty: 60 RF: 10 Continued duloxetine 60 mg capsule,delayed release(DR/EC) 60 mg PO QDAY Qty: 90 RF: 1 hydroxyzine HCl 25 mg tablet 25 mg PO Q4H PRN (Reason: anxiety) Qty: 90 RF: 2 Amitiza 24 mcg capsule 24 mcg PO BID Qty: 60 RF: 3 baclofen 10 mg tablet 10 mg PO TID Qty: 90 RF: 2 ramelteon [Rozerem] 8 mg tablet 8 mg PO QHS Qty: 30 RF: 3 bupropion HCl 300 mg tablet extended release 24 hr 300 mg PO QAM Qty: 90 RF: 2 pregabalin [Lyrica] 150 mg capsule 150 mg PO QHS Qty: 30 RF: 3 tadalafil 20 mg tablet See Rx Instructions .ROUTE .COMPLEX Qty: 15 RF: 3 pramipexole 0.5 mg tablet See Rx Instructions .ROUTE .COMPLEX Qty: 30 RF: 3 tizanidine 4 mg tablet 4 mg PO Q8H RF: 0 pramipexole [Mirapex] 0.5 mg tablet 0.5 mg PO PRN PRN (Reason: Restless Leg(S)) RF: 0 Follow Up Plan Follow up with: Dhruv Houston MD [Physician] - (Call Dr Houston's office to set up an appointment.) Ramos Loving MD [Physician] - (Please call Dr Loving's office before noon to set up an appointment in 10 days.) Patient Disposition: Home, Self-Care Prognosis: Fair Discharge Orders: Discharge Order (Routine); Ordered 06/10/20 Ordered By: Ramos Loving Pending Pending Pending: Resuscitation Status Full Code Diet Clear Liquid Diet Start Columba Jun 10 08 Acetaminophen (Tylenol) 650 mg PO Q6H CHARLIE; Protocol Last Admin: 06/10/20 16:44 Dose: Not Given Documented by: Admin: 06/10/20 10:42 Dose: Not Given Documented by: Admin: 06/10/20 03:40 Dose: Not Given Documented by: Admin: 06/09/20 20:58 Dose: 650 mg Documented by: Admin: 06/09/20 18:42 Dose: Not Given Documented by: Admin: 06/09/20 10:35 Dose: Not Given Documented by: Admin: 06/09/20 02:15 Dose: 650 mg Documented by: Admin: 06/08/20 20:45 Dose: 650 mg Documented by: Admin: 06/08/20 16:00 Dose: 650 mg Documented by: Admin: 06/08/20 08:29 Dose: 650 mg Documented by: Admin: 06/08/20 02:59 Dose: 650 mg Documented by: Admin: 06/07/20 21:27 Dose: Not Given Documented by: Admin: 06/07/20 15:01 Dose: Not Given Documented by: Admin: 06/07/20 08:55 Dose: Not Given Documented by: Admin: 06/07/20 04:13 Dose: Not Given Documented by: Admin: 06/06/20 21:47 Dose: 650 mg Documented by: Admin: 06/06/20 14:38 Dose: 650 mg Documented by: Admin: 06/06/20 09:39 Dose: 650 mg Documented by: Admin: 06/06/20 02:30 Dose: 650 mg Documented by: Admin: 06/05/20 21:19 Dose: 650 mg Documented by: JHONATAN Baclofen (Lioresal) 20 mg PO QHS [facility] Admin: 06/09/20 20:59 Dose: 20 mg Documented by: Admin: 06/08/20 20:44 Dose: 20 mg Documented by: Admin: 06/07/20 21:23 Dose: 20 mg Documented by: Admin: 06/06/20 20:35 Dose: 20 mg Documented by: Admin: 06/05/20 21:19 Dose: 20 mg Documented by: JHONATAN Bupropion HCl (Wellbutrin) 100 mg PO TID [facility] Admin: 06/10/20 16:46 Dose: Not Given Documented by: Admin: 06/10/20 10:10 Dose: 100 mg Documented by: Admin: 06/09/20 21:04 Dose: Not Given Documented by: Admin: 06/09/20 14:42 Dose: 100 mg Documented by: Admin: 06/09/20 10:05 Dose: 100 mg Documented by: Admin: 06/08/20 20:46 Dose: 100 mg Documented by: Admin: 06/08/20 15:59 Dose: 100 mg Documented by: Admin: 06/08/20 08:30 Dose: 100 mg Documented by: Admin: 06/07/20 21:27 Dose: Not Given Documented by: Admin: 06/07/20 15:00 Dose: 100 mg Documented by: Admin: 06/07/20 08:55 Dose: Not Given Documented by: Admin: 06/06/20 20:37 Dose: 100 mg Documented by: Admin: 06/06/20 14:39 Dose: 100 mg Documented by: Admin: 06/06/20 09:39 Dose: 100 mg Documented by: Admin: 06/05/20 21:20 Dose: 100 mg Documented by: JHONATAN Duloxetine HCl (Cymbalta) 60 mg PO QHS [facility] Admin: 06/09/20 20:59 Dose: 60 mg Documented by: Admin: 06/08/20 20:44 Dose: 60 mg Documented by: Admin: 06/07/20 21:23 Dose: 60 mg Documented by: Admin: 06/06/20 20:35 Dose: 60 mg Documented by: Admin: 06/05/20 21:19 Dose: 60 mg Documented by: JHONATAN Enoxaparin Sodium (Lovenox) 40 mg SQ DAILY [facility] Admin: 06/10/20 10:09 Dose: 40 mg Documented by: Admin: 06/09/20 10:07 Dose: 40 mg Documented by: FREDI Lactated Ringer's (Lactated Ringers) 1,000 mls @ 50 mls/hr IV .Q20H [facility] Last Admin: 06/10/20 12:50 Dose: 50 mls/hr Documented by: Infusion: 06/10/20 12:46 Dose: 50 mls/hr Documented by: Admin: 06/10/20 10:42 Dose: Not Given Documented by: Infusion: 06/09/20 21:00 Dose: 50 mls/hr Documented by: Infusion: 06/09/20 19:25 Dose: 0 mls/hr Documented by: Admin: 06/09/20 15:11 Dose: 50 mls/hr Documented by: FREDI Ondansetron HCl (Zofran) 4 mg IV Q4HP PRN PRN Reason: Nausea And Vomiting Last Admin: 06/09/20 07:33 Dose: 4 mg Documented by: Admin: 06/09/20 01:55 Dose: 4 mg Documented by: VASQUEZ Oxycodone HCl (Roxicodone) 5 mg PO Q4HP PRN; Protocol PRN Reason: Per Pain Protocol Last Admin: 06/09/20 14:42 Dose: 5 mg Documented by: Admin: 06/08/20 20:58 Dose: 5 mg Documented by: VASQUEZ Pramipexole [Mirapex (Er] 0.75 Mg Tablet) 1 dose PO BID [facility] Last Admin: 06/10/20 10:43 Dose: 1 dose Documented by: Admin: 06/09/20 21:00 Dose: 1 dose Documented by: Admin: 06/09/20 10:05 Dose: 1 dose Documented by: Admin: 06/08/20 20:46 Dose: 1 dose Documented by: Admin: 06/08/20 08:29 Dose: 1 dose Documented by: Admin: 06/07/20 21:23 Dose: 1 dose Documented by: Admin: 06/07/20 14:41 Dose: Not Given Documented by: Admin: 06/06/20 20:48 Dose: 1 dose Documented by: REN Pramipexole [Mirapex (Er] 0.75 Mg Tablet) 1 dose PO DAILYP PRN PRN Reason: RESTLESS LEGS Last Admin: 06/10/20 10:10 Dose: 1 dose Documented by: Admin: 06/08/20 00:02 Dose: 1 dose Documented by: Admin: 06/07/20 14:33 Dose: 1 dose Documented by: Admin: 06/06/20 20:37 Dose: 1 dose Documented by: Admin: 06/06/20 12:50 Dose: 1 dose Documented by: PHILIP Polyethylene Glycol (Miralax) 34 gm PO BID [facility] Last Admin: 06/10/20 10:09 Dose: 34 gm Documented by: Admin: 06/09/20 20:57 Dose: 34 gm Documented by: Admin: 06/09/20 10:05 Dose: 34 gm Documented by: Admin: 06/08/20 20:43 Dose: 34 gm Documented by: VASQUEZ Pregabalin (Lyrica) 150 mg PO QHS [facility] Admin: 06/09/20 20:59 Dose: 150 mg Documented by: Admin: 06/08/20 20:44 Dose: 150 mg Documented by: Admin: 06/07/20 21:23 Dose: 150 mg Documented by: Admin: 06/06/20 20:36 Dose: 150 mg Documented by: Admin: 06/05/20 21:20 Dose: 150 mg Documented by: JHONATAN Ramelteon (Rozerem) 8 mg PO QHS [facility] Admin: 06/09/20 20:59 Dose: 8 mg Documented by: Admin: 06/08/20 20:46 Dose: 8 mg Documented by: Admin: 06/07/20 21:24 Dose: 8 mg Documented by: Admin: 06/06/20 20:37 Dose: 8 mg Documented by: Admin: 06/05/20 21:22 Dose: 8 mg Documented by: JHONATAN Senna/Docusate Sodium (Senna Plus Tablet) 5 tab PO BID [facility] Admin: 06/10/20 10:09 Dose: 5 tab Documented by: Admin: 06/09/20 20:58 Dose: 5 tab Documented by: Admin: 06/09/20 10:05 Dose: 5 tab Documented by: Admin: 06/08/20 20:44 Dose: 5 tab Documented by: Admin: 06/08/20 11:44 Dose: 5 tab Documented by: FREDI Sodium Chloride (Saline Flush) 10 ml IV Q8 [facility] Admin: 06/10/20 12:54 Dose: Not Given Documented by: Admin: 06/10/20 06:45 Dose: Not Given Documented by: Admin: 06/09/20 21:04 Dose: 10 ml Documented by: Admin: 06/09/20 14:42 Dose: 10 ml Documented by: Admin: 06/09/20 07:33 Dose: 10 ml Documented by: Admin: 06/08/20 20:50 Dose: Not Given Documented by: Admin: 06/08/20 14:33 Dose: 10 ml Documented by: Admin: 06/08/20 06:36 Dose: 10 ml Documented by: Admin: 06/07/20 21:30 Dose: Not Given Documented by: Admin: 06/07/20 14:39 Dose: 10 ml Documented by: Admin: 06/07/20 05:26 Dose: Not Given Documented by: Admin: 06/06/20 21:47 Dose: Not Given Documented by: Admin: 06/06/20 12:27 Dose: Not Given Documented by: Admin: 06/06/20 06:08 Dose: 10 ml Documented by: Admin: 06/05/20 22:23 Dose: 10 ml Documented by: JHONATAN Tamsulosin HCl (Flomax) 0.4 mg PO BID [facility] Last Admin: 06/10/20 10:09 Dose: 0.4 mg Documented by: Admin: 06/09/20 20:59 Dose: 0.4 mg Documented by: Admin: 06/09/20 10:05 Dose: 0.4 mg Documented by: Admin: 06/08/20 20:44 Dose: 0.4 mg Documented by: Admin: 06/08/20 11:44 Dose: 0.4 mg Documented by: FREDI Tizanidine HCl (Zanaflex) 4 mg PO TIDP PRN PRN Reason: Muscle Spasm Last Admin: 06/09/20 21:00 Dose: 4 mg Documented by: Admin: 06/09/20 02:16 Dose: 4 mg Documented by: Admin: 06/08/20 20:58 Dose: 4 mg Documented by: Admin: 06/08/20 00:02 Dose: 4 mg Documented by: Admin: 06/07/20 14:31 Dose: 4 mg Documented by: Admin: 06/06/20 20:47 Dose: 4 mg Documented by: Admin: 06/06/20 03:20 Dose: 4 mg Documented by: Admin: 06/05/20 20:29 Dose: 4 mg Documented by: JHONATAN Shift Summary 06/10/20 03:52 Shift Summary by Xiomara Waldron Slept off & on thru the night. Up in room w/SBA. Ambulated halls to shower & back to room w/SBA & own cane. Feels much better after cleaning up. Pt has limp from MS, otherwise gait steady. Has not needed PRN pain meds tonight. Abd bloated & soft. Pt states he can hear & feel more bowel tones than last night. Had one small "poof" of flatus last night, but not much. Still belching often. Pt hoping for a large BM today so he can go home. Initialized on 06/10/20 03:52 - END OF NOTE
== END 2020-06-10 19:30 | disposition home or self-care (01) | DRG 346 ==
LOC: ED 12:39 → MEDSUR 17:50
PROVIDERS: ADMIT Surgery; ATTEND Surgery